=== PATIENT | male | born 1960 | race Two or more races ===

== ENCOUNTER 2018-07-18 17:25 | Inpatient (IN) | payer OTHER ==
[~2018-07-18] VITALS: Ht 160 cm; Wt 65.8 kg
--- NOTE | 2018-07-18 21:00 | NUR ---
VEHICLE MODIFICATION TECHNICIANGRIPPER INSTALLER NOTES: PT ADMITTED FROM [place]IA [place], ALERT AND ORIENTED X3. UKRAINIAN SPEAKING. AT BEDSIDE. NO APPARENT DISTRESS NOTED. NO COMPLAINTS OF PAIN OR DISCOMFORT AT THIS TIME. ON 2LPM NASAL CANNULA, BREATHING EVEN AND UNLABORED WITH NORMAL RESPIRATIONS. ON TELE MONITOR SINUS RHYTHM HR 87BPM. PT HAS A PERIPHERAL IV ON HIS RIGHT HAND #20, INTACT AND PATENT, FLUSHING WELL. PERTINENT ASSESSMENTS DONE. SKIN IS INTACT. BP HIGH, 180/107. DR JACKSON MADE AWARE AND HE ORDERED CLONIDINE 0.1MG PO Q6HRS PRN FOR SBP >150. KEPT CLEAN, DRY AND COMFORTABLE. SAFETY AND FALL PRECAUTIONS OBSERVED AND MAINTAINED. CALL LIGHT WITHIN REACH. WILL CONTINUE TO MONITOR PT.
[2018-07-18] MEDS ORDERED: GABA-534 PO (21:26)
[2018-07-18] MEDS ORDERED: INSU100V36 SQ (21:26)
[2018-07-18] MEDS ORDERED: DOCU-141 PO (21:26)
[2018-07-18] MEDS ORDERED: LOSA50TA39 PO (21:26)
[2018-07-18] MEDS ORDERED: FURO20TA4 PO (21:26)
[2018-07-18] MEDS ORDERED: ATOR40TA PO (21:26)
[2018-07-18] MEDS ORDERED: GLIP10TA11 PO (21:26)
[2018-07-18] MEDS ORDERED: INSU100I26 SQ (21:26)
[2018-07-18] MEDS ORDERED: TAMS0.4C34 PO (21:26)
[2018-07-18] MEDS ORDERED: HYDR-4077 PO (21:26)
[2018-07-18] MEDS ORDERED: SITA100T PO (21:26)
[2018-07-18 21:42] VITALS: BP 180/107
[2018-07-18] MEDS: CLONIDINE HCL 0.1 MG TABLET PO PRN (22:28)
[2018-07-18 22:57] VITALS: BP 176/95
[2018-07-19] VITALS (8 sets, daily range): BP systolic 138–164; BP diastolic 76–102
[2018-07-19] MEDS ORDERED: INSULIN GLARGINE, 100 UNIT/ML CARTRIDGE SQ SCH (00:30)
[2018-07-19] MEDS: IV 1/2NS 1000 ML 1,000 ML IV PRN (00:54)
[2018-07-19] MEDS ORDERED: TEMAZEPAM 7.5 MG CAPSULE PO PRN (01:00)
[2018-07-19] MEDS ORDERED: ONDANSETRON HCL/PF 4 MG/2 ML VIAL IVP PRN (01:00)
[2018-07-19] MEDS ORDERED: ACETAMINOPHEN 325 MG TABLET PO PRN (01:00)
--- NOTE | 2018-07-19 01:07 | NUR ---
ALIGNER TYPEWRITER NOTE: BLOOD SUGAR 69MG/DL. DR. JACKSON MADE AWARE HELD INSULIN LANTUS.
[2018-07-19] MEDS: hydrALAZINE HCL 50 MG TABLET PO SCH ×4 (01:09→16:41)
[2018-07-19] MEDS ORDERED: INSULIN GLARGINE, 100 UNIT/ML CARTRIDGE SQ ONE (01:10)
[2018-07-19] MEDS ORDERED: DEXTROSE 50%-WATER 50 ML DISP.SYRIN IV PRN (01:30)
--- NOTE | 2018-07-19 06:49 | NUR ---
VENEER REDRIER NOTE: NO CHANGES NOTED THROUGHOUT THE SHIFT. NO APPARENT DISTRESS NOTED. DENIES PAIN AND DISCOMFORT AT THIS TIME. NO SOB NOTED. SINUS RHYTHM HR 65 ON TELE MONITOR. IV ON RIGHT HAND #20 INTACT AND PATENT, IVF INFUSING WELL. KEPT CLEAN, DRY AND COMFORTABLE. SAFETY AND FALL PRECAUTIONS OBSERVED AND MAINTAINED. WILL ENDORSE TO DAY SHIFT RN FOR CONTINUITY OF CARE.
[2018-07-19 07:34] LABS: EOSINOPHILS % (AUTO) 5.4 % (0.0-6.0); HEMATOCRIT 22 % (39-51); HEMOGLOBIN 7.4 g/dL (13.5-17.5); LYMPHOCYTES # (AUTO) 0.8 /CMM (0.8-4.8); LYMPHOCYTES % (AUTO) 16.6 % (20.0-44.0); MEAN CORPUSCULAR HGB CONC 33 g/dl (31.0-36.0); MEAN CORPUSCULAR VOLUME 89 fL (80-96); MONOCYTES # (AUTO) 0.4 /CMM (0.1-1.30); MONOCYTES % (AUTO) 9.4 % (2.0-12.0); NEUTROPHILS # (AUTO) 3.1 /CMM (1.8-8.9); NEUTROPHILS % (AUTO) 67.6 % (43.0-81.0); PLATELET COUNT (AUTO) 234 /CMM (150-450); WHITE BLOOD COUNT (AUTO) 4.6 K/uL (4.3-11.0)
--- NOTE | 2018-07-19 08:00 | NUR ---
RN NOTES RECEIVED PATIENT,ASLEEP, RESPONSIVE TO VERBAL STIMULI, A/O X4, ABLE TO MAKE NEEDS KNOWN BUT EXPRESSES SELF WITH [place], NOT ON ANY FORM OF DISTRESS, NO COMPLAINTS OF PAIN. ON NASAL CANNULA WITH 2LMP OXYGEN, BREATHING UNLABORED, SINUS RHYTHM ON THE MONITOR WITH HT AT 88BPM AT THIS TIME IV ON THE R ARM G [address] AND INTACT, PATENT ON FLUSHING , ONGOING 1/2 NS AT 60CC/HR, PATIENT ABLE TO AMBULATE, ENCOURAGE TO VERBALIZE FEELINGS AND CONCERN. CALL LIGHT PLACED WITHIN REACH, SAFETY MEASURES OBSERVED AND MAINTAINED, BED LOW AND LOCKED POSITION, SRX2, WILL CONTINUE TO MONITOR AND ANTICIPATE NEEDS
[2018-07-19 08:30] LABS: ALANINE AMINOTRANSFERASE 33 U/L (12-78); ALBUMIN 3.2 g/dL (3.4-5.0); ALKALINE PHOSPHATASE 116 U/L (46-116); ASPARTATE AMINOTRANSFERASE 22 U/L (15-37); B-TYPE NATRIURETIC PEPTIDE 13925 PG/ML (0-125); BILIRUBIN,TOTAL 0.3 mg/dL (0.2-1.0); CARBON DIOXIDE 22 mmol/L (21-32); CHLORIDE 111 mmol/L (98-107); CREATININE 3.9 mg/dL (0.6-1.3); GLUCOSE 95 mg/dL (74-106); MAGNESIUM 2.4 mg/dL (1.8-2.4); PHOSPHORUS 5.5 mg/dL (2.5-4.9); POTASSIUM 4.9 mmol/L (3.5-5.1); SODIUM SERUM 144 mmol/L (136-145); TOTAL PROTEIN, SERUM 6.3 g/dL (6.4-8.2); UREA NITROGEN, BLOOD 64 mg/dL (7-18)
[2018-07-19] MEDS ORDERED: glipiZIDE 10 MG TABLET PO SCH (09:00)
[2018-07-19] MEDS: BLOOD SUGAR DIAGNOSTIC 1 EACH STRIP IN SCH ×4 (09:27→21:26)
[2018-07-19] MEDS: DOCUSATE SODIUM 100 MG CAPSULE PO SCH ×2 (09:28→16:41)
[2018-07-19] MEDS: PANTOPRAZOLE 40 MG TABLET.DR PO SCH (09:28)
[2018-07-19] MEDS: HYDROCODONE/APAP 5/325MG 1 EACH TABLET PO PRN ×2 (09:28→16:46)
[2018-07-19] MEDS: ASPIRIN 81 MG TAB.CHEW PO SCH (09:31)
[2018-07-19] MEDS: CLONIDINE HCL 0.1 MG TABLET PO PRN (09:31)
[2018-07-19 09:40] LABS: IRON, SERUM 38 ug/dl (50-175); TOTAL IRON BINDING CAPACITY 209 ug/dl (250-450)
[2018-07-19 10:25] LABS: CHOLESTEROL 108 mg/dL (<200); HDL CHOLESTEROL 37 mg/dL (40-60); LDL 65 mg/dL (0-99); THYROID STIMULATING HORMONE 6.877 uIU/mL (0.358-3.74); TRIGLYCERIDES 61 mg/dL (30-150)
[2018-07-19] MEDS: INSULIN REGULAR, HUMAN 100 UNIT/ML 3 ML VIAL SQ PRN (12:59)
[2018-07-19 16:27] LABS: APPEARANCE,URINE CLEAR (CLEAR); BILIRUBIN,URINE NEGATIVE (NEGATIVE); BLOOD, URINE NEGATIVE Ery/uL (NEGATIVE); COLOR,URINE YELLOW (YELLOW); KETONES,URINE NEGATIVE (NEGATIVE); LEUKOCYTE ESTERASE ,URINE NEGATIVE (NEGATIVE); NITRITE, URINE NEGATIVE (NEGATIVE); PH,URINE 5.5 (5.0-8.0); PROTEIN,URINE 2+ mg/dl (NEGATIVE); UGLUCOSE TRACE mg/dL (NEGATIVE); UROBILINOGEN,URINE 0.2 EU/dL (0.2)
[2018-07-19 16:46] LABS: BACTERIA,URINE None seen /HPF (None Seen); RBC,URINE 0-2 /HPF (0-2); SQUAMOUS EPITHELIAL CELL,UR Few /HPF (None Seen); WBC,URINE 0-2 /HPF (0-3)
--- NOTE | 2018-07-19 17:30 | NUR ---
RN CHECKED BLOOD SUGAR, 93MMHG NO COVERAGE AT THIS TIME
--- NOTE | 2018-07-19 19:29 | NUR ---
RN CLOSING NOTE PATIENT ALERT ORIENTED WITH AT BEDSIDE, BLOOD PRESSURE IS STABLE WITH MEDICATIONS BY MOUTH, PAIN MANAGED WITH CURRENT MEDICATIN REGIMEN, INTAKE AND OUTPUT WNL, SLIGHTLY LETHARGIC, REPORTS OF MILD CHEST PAIN ON ADMISSION, EATING WELL, BLOOD SUGAR MANAGED ENDORSED TO NIGHT NURSE
[2018-07-19] MEDS: TAMSULOSIN 0.4 MG CAP.SR.24H PO SCH (21:12)
[2018-07-19] MEDS: ATORVASTATIN 40 MG TABLET PO SCH (21:12)
[2018-07-19] MEDS: GABAPENTIN 300 MG CAPSULE PO SCH (21:12)
[2018-07-19 21:50] LABS: OCCULT BLOOD STOOL NEGATIVE (NEGATIVE)
[2018-07-20] VITALS (12 sets, daily range): BP systolic 106–178; BP diastolic 41–89
--- NOTE | 2018-07-20 06:35 | NUR ---
ASIC VERIFICATION ENGINEER NOTE: NO CHANGES NOTED THROUGHOUT THE SHIFT. NO ACUTE DISTRESS NOTED. DENIES PAIN AND DISCOMFORT AT THIS TIME. NO SOB NOTED. SINUS RHYTHM HR 68 ON TELE MONITOR. IV ON RIGHT HAND #20 INTACT AND PATENT, IVF INFUSING WELL. KEPT CLEAN, DRY AND COMFORTABLE. SAFETY AND FALL PRECAUTIONS OBSERVED AND MAINTAINED. WILL ENDORSE TO DAY SHIFT RN FOR CONTINUITY OF CARE.
[2018-07-20 07:39] LABS: BASOPHILS # (AUTO) 0.1 /CMM (0.0-0.2); BASOPHILS % (AUTO) 1.2 % (0.0-2.0); EOSINOPHILS % (AUTO) 4.7 % (0.0-6.0); HEMATOCRIT 21 % (39-51); LYMPHOCYTES # (AUTO) 0.9 /CMM (0.8-4.8); LYMPHOCYTES % (AUTO) 21.7 % (20.0-44.0); MEAN CORPUSCULAR HGB CONC 34 g/dl (31.0-36.0); MEAN CORPUSCULAR VOLUME 88 fL (80-96); MONOCYTES # (AUTO) 0.6 /CMM (0.1-1.30); NEUTROPHILS # (AUTO) 2.6 /CMM (1.8-8.9); NEUTROPHILS % (AUTO) 59.4 % (43.0-81.0); PLATELET COUNT (AUTO) 213 /CMM (150-450); RED BLOOD CELL COUNT(AUTO) 2.33 MIL/uL (4.5-6.0); WHITE BLOOD COUNT (AUTO) 4.3 K/uL (4.3-11.0)
[2018-07-20 07:59] LABS: CALCIUM, SERUM 7.8 mg/dL (8.5-10.1); POTASSIUM 4.1 mmol/L (3.5-5.1)
[2018-07-20 08:05] LABS: HEMOGLOBIN 6.9 g/dL (13.5-17.5)
[2018-07-20] MEDS: DOCUSATE SODIUM 100 MG CAPSULE PO SCH ×2 (08:34→17:17)
[2018-07-20] MEDS: ASPIRIN 81 MG TAB.CHEW PO SCH (08:34)
[2018-07-20] MEDS: PANTOPRAZOLE 40 MG TABLET.DR PO SCH (08:34)
[2018-07-20] MEDS: BLOOD SUGAR DIAGNOSTIC 1 EACH STRIP IN SCH ×4 (08:37→21:07)
[2018-07-20] MEDS: hydrALAZINE HCL 50 MG TABLET PO SCH ×3 (08:37→17:18)
[2018-07-20] MEDS: IV 1/2NS 1000 ML 1,000 ML IV PRN (09:51)
[2018-07-20] MEDS: AMLODIPINE BESYLATE 5 MG TABLET PO SCH (11:55)
[2018-07-20] MEDS: INSULIN REGULAR, HUMAN 100 UNIT/ML 3 ML VIAL SQ PRN (12:50)
[2018-07-20 13:14] LABS: LYMPHOCYTES % (MANUAL) 10 % (16-48); MONOCYTES % (MANUAL) 8 % (0-11.0); NEUTROPHILS % (MANUAL) 82 (42-76)
[2018-07-20] MEDS: COLCHICINE 0.6 MG TABLET PO SCH (17:17)
--- NOTE | 2018-07-20 19:25 | NUR ---
MEDSURBaron RN NOTE PATIENT RESTING IN BED IN STABLE CONDITION, NO RESPIRATORY DISTRESS NOTED NO COMPLAINT OF PAIN, ON O2 VIA NASAL CANNULA AT 2LPM. IV SITE INTACT ON RIGHT HAND INFUSING HALF NORMAL SALINE ORDERED. BED IN LOW LOCKED POSITION, SIDE RAILS UP, ENDORSED TO TRACTOR TRAILER DRIVER NURSE FOR CONTINUITY OF CARE.
[2018-07-20 19:50] LABS: APPEARANCE,URINE CLEAR (CLEAR); BILIRUBIN,URINE NEGATIVE (NEGATIVE); BLOOD, URINE NEGATIVE Ery/uL (NEGATIVE); COLOR,URINE YELLOW (YELLOW); KETONES,URINE NEGATIVE (NEGATIVE); LEUKOCYTE ESTERASE ,URINE NEGATIVE (NEGATIVE); NITRITE, URINE NEGATIVE (NEGATIVE); PROTEIN,URINE 2+ mg/dl (NEGATIVE); UGLUCOSE NEGATIVE (NEGATIVE); UROBILINOGEN,URINE 0.2 EU/dL (0.2)
--- NOTE | 2018-07-20 19:51 | NUR ---
MS RN NOTES RECEIVED PT ON BED. A/O X4. FAMILY AT BEDSIDE. ON NC 2LPM NO RESPIRATORY DISTRESS NOTED. IV ACCESS RIGHT HAND G20 1/2 NS @60CC/HR RUNNING WELL.. HEAD OF BED ELEVATED. SIDE RAILS UP. CALL LIGHT WITHIN REACH. BED ALARM ON. WILL CONTINUE TO MONITOR PT CLOSELY.
[2018-07-20 20:09] LABS: CREATININE, URINE 61.1 MG/DL (30.0-125.0)
[2018-07-20 20:27] LABS: BACTERIA,URINE Rare /HPF (None Seen); HYALINE CASTS, URINE Rare /LPF (None Seen); MUCUS,URINE Few /LPF (None Seen); RBC,URINE 0-2 /HPF (0-2); SQUAMOUS EPITHELIAL CELL,UR 0-2 /HPF (None Seen); WBC,URINE 0-2 /HPF (0-3)
[2018-07-20] MEDS: CLONIDINE HCL 0.1 MG TABLET PO PRN (21:00)
[2018-07-20] MEDS: GABAPENTIN 300 MG CAPSULE PO SCH (21:00)
[2018-07-20] MEDS: TAMSULOSIN 0.4 MG CAP.SR.24H PO SCH (21:00)
[2018-07-20] MEDS: ATORVASTATIN 40 MG TABLET PO SCH (21:09)
[2018-07-20 21:15] LABS: EOSINOPHIL,URINE None Seen
[2018-07-21 04:00] VITALS: BP_SYST 165; BP_DIAS 81; BP_DIAS 89
--- NOTE | 2018-07-21 04:17 | NUR ---
MS RN NOTES BLADDER SCAN DONE 150 ML RESIDUAL.
[2018-07-21] MEDS: CLONIDINE HCL 0.1 MG TABLET PO PRN (04:55)
[2018-07-21 07:06] LABS: BASOPHILS # (AUTO) 0.1 /CMM (0.0-0.2); HEMATOCRIT 24 % (39-51); LYMPHOCYTES # (AUTO) 0.6 /CMM (0.8-4.8); LYMPHOCYTES % (AUTO) 12.7 % (20.0-44.0); MEAN CORPUSCULAR HGB CONC 33 g/dl (31.0-36.0); MEAN CORPUSCULAR VOLUME 88 fL (80-96); MONOCYTES # (AUTO) 0.5 /CMM (0.1-1.30); MONOCYTES % (AUTO) 9.5 % (2.0-12.0); NEUTROPHILS # (AUTO) 3.6 /CMM (1.8-8.9); NEUTROPHILS % (AUTO) 72.8 % (43.0-81.0); PLATELET COUNT (AUTO) 216 /CMM (150-450); RED BLOOD CELL COUNT(AUTO) 2.71 MIL/uL (4.5-6.0); WHITE BLOOD COUNT (AUTO) 4.9 K/uL (4.3-11.0)
--- NOTE | 2018-07-21 07:21 | NUR ---
MS RN NOTES NO ACUTE CHANGES NOTED DURING THE SHIFT. PROVIDED COMFORT AND SAFETY. ENDORSED TO THE AM NURSE FOR CONTINUITY OF CARE.
[2018-07-21 08:00] VITALS: BP 150/72
[2018-07-21 08:04] LABS: ALBUMIN 3.1 g/dL (3.4-5.0); BILIRUBIN,TOTAL 0.3 mg/dL (0.2-1.0); CALCIUM, SERUM 7.7 mg/dL (8.5-10.1); CREATININE 4.3 mg/dL (0.6-1.3); MAGNESIUM 2.1 mg/dL (1.8-2.4); PHOSPHORUS 5.5 mg/dL (2.5-4.9); POTASSIUM 4.7 mmol/L (3.5-5.1); TOTAL PROTEIN, SERUM 6.1 g/dL (6.4-8.2)
[2018-07-21] MEDS: IV 1/2NS 1000 ML 1,000 ML IV PRN (09:01)
[2018-07-21] MEDS: COLCHICINE 0.6 MG TABLET PO SCH ×2 (09:02→17:17)
[2018-07-21] MEDS: DOCUSATE SODIUM 100 MG CAPSULE PO SCH ×2 (09:02→17:18)
[2018-07-21] MEDS: BLOOD SUGAR DIAGNOSTIC 1 EACH STRIP IN SCH ×4 (09:02→22:48)
[2018-07-21] MEDS: hydrALAZINE HCL 50 MG TABLET PO SCH ×3 (09:03→17:19)
[2018-07-21] MEDS: PANTOPRAZOLE 40 MG TABLET.DR PO SCH (09:03)
[2018-07-21] MEDS: AMLODIPINE BESYLATE 5 MG TABLET PO SCH ×2 (09:03→17:19)
[2018-07-21] MEDS: ASPIRIN 81 MG TAB.CHEW PO SCH (09:03)
[2018-07-21] MEDS: INSULIN REGULAR, HUMAN 100 UNIT/ML 3 ML VIAL SQ PRN (12:09)
[2018-07-21] MEDS: HYDROCODONE/APAP 5/325MG 1 EACH TABLET PO PRN (12:10)
[2018-07-21 16:00] VITALS: BP 138/75
--- NOTE | 2018-07-21 19:15 | NUR ---
WILFRIDO RN NOTE PATIENT RESTING IN BED IN STABLE CONDITION, ON 02 VIA NASAL CANNULA AT 2LPM, NO RESPIRATORY DISTRESS NOTED. FAMILY AT BEDSIDE. IV SITE ON RIGHT HAND INTACT INFUSING HALF NORMAL SALINE AT 60ML/HR. CALL LIGHT WITHIN REACH, BED IN LOW LOCKED POSITION, CALL LIGHT WITHIN REACH, ENDORSED TO OUTDOOR ADVERTISING LEASING AGENT NURSE FOR CONTINUITY OF CARE.
[2018-07-21 20:00] VITALS: BP 137/74
[2018-07-21] MEDS: ATORVASTATIN 40 MG TABLET PO SCH (22:51)
[2018-07-21] MEDS: GABAPENTIN 300 MG CAPSULE PO SCH (22:51)
[2018-07-21] MEDS: TAMSULOSIN 0.4 MG CAP.SR.24H PO SCH (22:51)
[2018-07-22 04:00] VITALS: BP 146/75
[2018-07-22] MEDS: IV 1/2NS 1000 ML 1,000 ML IV PRN (04:02)
[2018-07-22] MEDS: BLOOD SUGAR DIAGNOSTIC 1 EACH STRIP IN SCH ×3 (07:03→18:00)
[2018-07-22] MEDS: PANTOPRAZOLE 40 MG TABLET.DR PO SCH (07:04)
--- NOTE | 2018-07-22 07:30 | NUR ---
RN NOTES RECEIVED PATIENT IN BED ALERT, AWAKE, ORIENTED X4 WITH BREATHING NORMAL, EVEN AND UNLABORED. NO SOB NOTED. NO ACUTE DISTRESS NOTED. ON 2L O2 VIA NC, SATURATING WELL. IV R HAND IS PATENT AND INTACT,CONT ON IVF PER ORDER. KEPT CLEAN, DRY AND COMFORTABLE. ALL NEEDS ATTENDED. SAFETY MEASURE OBSERVED. CALL LIGHT WITH IN REACH. WILL CONT TO MONITOR.
[2018-07-22 08:00] VITALS: BP 159/80
[2018-07-22] MEDS: DOCUSATE SODIUM 100 MG CAPSULE PO SCH ×2 (09:23→17:00)
[2018-07-22] MEDS: COLCHICINE 0.6 MG TABLET PO SCH ×2 (09:23→17:58)
[2018-07-22] MEDS: ASPIRIN 81 MG TAB.CHEW PO SCH (09:23)
[2018-07-22] MEDS: AMLODIPINE BESYLATE 5 MG TABLET PO SCH ×2 (09:24→17:59)
[2018-07-22] MEDS: hydrALAZINE HCL 50 MG TABLET PO SCH ×3 (09:24→17:59)
[2018-07-22 09:49] LABS: BASOPHILS # (AUTO) 0.1 /CMM (0.0-0.2); BASOPHILS % (AUTO) 1.3 % (0.0-2.0); EOSINOPHILS % (AUTO) 4.5 % (0.0-6.0); HEMATOCRIT 25 % (39-51); HEMOGLOBIN 8.6 g/dL (13.5-17.5); LYMPHOCYTES # (AUTO) 0.7 /CMM (0.8-4.8); LYMPHOCYTES % (AUTO) 14.3 % (20.0-44.0); MEAN CORPUSCULAR HGB CONC 34 g/dl (31.0-36.0); MEAN CORPUSCULAR VOLUME 88 fL (80-96); MONOCYTES # (AUTO) 0.6 /CMM (0.1-1.30); MONOCYTES % (AUTO) 11.7 % (2.0-12.0); NEUTROPHILS # (AUTO) 3.5 /CMM (1.8-8.9); NEUTROPHILS % (AUTO) 68.2 % (43.0-81.0); PLATELET COUNT (AUTO) 215 /CMM (150-450); RED BLOOD CELL COUNT(AUTO) 2.88 MIL/uL (4.5-6.0); WHITE BLOOD COUNT (AUTO) 5.1 K/uL (4.3-11.0)
[2018-07-22 10:03] LABS: ALBUMIN 3.2 g/dL (3.4-5.0); BILIRUBIN,TOTAL 0.3 mg/dL (0.2-1.0); CREATININE 4.2 mg/dL (0.6-1.3); MAGNESIUM 2.2 mg/dL (1.8-2.4); PHOSPHORUS 5.4 mg/dL (2.5-4.9); POTASSIUM 4.6 mmol/L (3.5-5.1); TOTAL PROTEIN, SERUM 6.4 g/dL (6.4-8.2)
[2018-07-22 10:20] LABS: *SPE A/G RATIO 1.4 (0.7-1.7); *SPE ALBUMIN 3.4 g/dL (2.9-4.4); *SPE ALPHA-1-GLOBULIN 0.2 g/dL (0.0-0.4); *SPE ALPHA-2-GLOBULIN 0.7 g/dL (0.4-1.0); *SPE BETA GLOBULIN 0.8 g/dL (0.7-1.3); *SPE GLOBULIN, TOTAL 2.4 g/dL (2.2-3.9); *SPE M-SPIKE Not Observed g/dL (Not Observed); *SPEGAMMA GLOBULIN 0.8 g/dL (0.4-1.8)
[2018-07-22] MEDS: INSULIN REGULAR, HUMAN 100 UNIT/ML 3 ML VIAL SQ PRN ×2 (12:23→18:01)
[2018-07-22 13:14] LABS: PTH, INTACT 174 pg/mL (15-65)
[2018-07-22 16:00] VITALS: BP 135/69
[2018-07-22] MEDS ORDERED: ASPI-1169 PO (16:19)
[2018-07-22] MEDS ORDERED: HYDR-4077 PO (16:19)
[2018-07-22] MEDS ORDERED: Colchicine PO (16:19)
[2018-07-22 17:59] VITALS: BP 147/74
--- NOTE | 2018-07-22 19:20 | NUR ---
RN NOTES PATIENT DISCHARGED IN STABLE CONDITION WITH BREATHING NORMAL, EVEN AND UNLABORED. NO SOB NOTED. NO ACUTE DISTRESS NOTED. DISCHARGE INSTRUCTION GIVEN WITH FEEDBACK . UNDERSTOOD WELL. IV HEPLOCK REMOVED. PATIENT LEFT WITH FAMILY IN STABLE CONDITION.
== END 2018-07-22 20:00 | disposition home or self-care (01) | DRG 207 ==
LOC: TELE1 20:32 → MEDSG1 07-20 19:02
PROVIDERS: ADMIT Internal Medicine; ATTEND Student in an Organized Health Care Education/Training Program
PROC: 30233N1 Transfusion of Nonautologous Red Blood Cells into Peripheral Vein, Percutaneous Approach (ICD-10-PCS; principal; 2018-07-20)
DX: I31.9 Disease of pericardium, unspecified (principal); N17.0 Acute kidney failure with tubular necrosis; I50.33 Acute on chronic diastolic (congestive) heart failure; E11.21 Type 2 diabetes mellitus with diabetic nephropathy; D68.59 Other primary thrombophilia; E11.22 Type 2 diabetes mellitus with diabetic chronic kidney disease; E11.319 Type 2 diabetes mellitus with unspecified diabetic retinopathy without macular edema; M94.0 Chondrocostal junction syndrome [Tietze]; E11.40 Type 2 diabetes mellitus with diabetic neuropathy, unspecified; N18.9 Chronic kidney disease, unspecified; D63.8 Anemia in other chronic diseases classified elsewhere; E78.5 Hyperlipidemia, unspecified; E87.5 Hyperkalemia; I31.3 Pericardial effusion (noninflammatory); I25.10 Atherosclerotic heart disease of native coronary artery without angina pectoris; I13.0 Hypertensive heart and chronic kidney disease with heart failure and stage 1 through stage 4 chronic kidney disease, or unspecified chronic kidney disease; N40.0 Benign prostatic hyperplasia without lower urinary tract symptoms
CPT/HCPCS: 36415; 71045-TC; 76770-TC; 80048-TC; 80053-TC; 80061-TC; 81000-TC; 82272-TC; 82550-TC; 82570-TC; 82962-TC; 83540-TC; 83735-TC; 83880; 83970; 84100-TC; 84155; 84155-TC; 84165; 84300-TC; 84439-TC; 84443-TC; 84480; 84484-TC; 85025-TC; 86850-TC; 86921-TC; 87081-TC; 93307-TC; G0378; J1815; J3490; J7030; J7050; P9016-BL